=== PATIENT | female | born 1980 | race American Indian/Alaskan Native ===

== ENCOUNTER 2021-07-23 20:03 | Emergency (ER) | payer OTHER ==
--- NOTE | 2021-07-23 20:50 | XRay Report ---
CHEST 1 VIEW 07/23/2021 8:32 PM INDICATION / CLINICAL INFORMATION: Dyspnea. COMPARISON: 07/23/2021. FINDINGS: SUPPORT DEVICES: None. HEART / MEDIASTINUM: No significant abnormality. LUNGS / PLEURA: No significant pulmonary or pleural abnormality. No pneumothorax. ADDITIONAL FINDINGS: No significant additional findings. IMPRESSION: No acute abnormality. Signer Name: Antonio Hernandez MD Signed: 07/23/2021 8:46 PM Workstation Name: [id number]
[2021-07-23] MEDS ORDERED: IPRATROPIUM/ALBUTEROL SULFATE 3 ML AMPUL.NEB IH ONE (21:00)
--- NOTE | 2021-07-23 21:05 | Emergency Department Report ---
ED Asthma HPI - General Chief Complaint: Dyspnea/Respdistress Stated Complaint: SMILEY Time Seen by Provider: 07/23/21 20:16 Source: patient, EMS Mode of arrival: Stretcher Limitations: No Limitations - History of Present Illness Initial Comments: Patient is a 40-year-old female with history of asthma and sarcoidosis presenting with complaint of worsening shortness of breath. States her symptoms began on Friday. States he took her prednisone which did not help. Came here earlier today and received 1 nebulization which helped some. States her sympto ms returned/worsened later this evening. Given 125 mg IV Solu-Medrol by EMS in route along with 1 albuterol neb. - Related Data Allergies Allergy/AdvReac Type Severity Reaction Status Date / Time No Known Allergies Allergy Unverified 07/23/21 23:13 ED Review of Systems ROS: Stated complaint: SMILEY Other details as noted in HPI Constitutional: denies: chills, fever Respiratory: shortness of breath, wheezing Cardiovascular: denies: chest pain, palpitations Gastrointestinal: denies: abdominal pain, nausea, diarrhea Musculoskeletal: denies: back pain, joint swelling, arthralgia Skin: denies: rash, lesions Neurological: denies: headache, weakness, paresthesias Psychiatric: denies: anxiety, depression ED Physical Exam - General Limitations: No Limitations General appearance: alert, in no apparent distress - Head Head exam: Present: atraumatic, normocephalic - Neck Neck exam: Present: normal inspection - Respiratory Respiratory exam: Present: wheezes (Diffuse expiratory wheezing), accessory musc le use - Cardiovascular Cardiovascular Exam: Present: regular rate, normal rhythm, normal heart sounds - GI/Abdominal GI/Abdominal exam: Present: soft. Absent: distended, tenderness - Neurological Exam Neurological exam: Present: alert, oriented X3 - Psychiatric Psychiatric exam: Present: normal affect, normal mood - Skin Skin exam: Present: warm, dry, intact, normal color ED Course Vital Signs 07/23/21 21:12 Pulse Rate [ 86 Anterior Bilateral Throughout] Respiratory 18 Rate [Anterior Bilateral Throughout] ED Medical Decision Making - Lab Data Result diagrams: 07/23/21 21:16 07/23/21 21:16 - Medical Decision Making CBC, CMP, troponin and BNP unremarkable. Chest x-ray normal. Patient given DuoNeb x3 [id number] with improvement of symptoms. Likely combination of asthma and sarcoidosis. Patient currently satting 95% on room air. Wheezing is improved however not fully resolved. Patient states she has nebulizer treatments at home. Will discharge home with return precautions. Critical care attestation.: If time is entered above; I have spent that time in minutes in the direct care of this critically ill patient, excluding procedure time. ED Disposition Clinical Impression: Asthma exacerbation, Sarcoidosis Disposition: 01 HOME / SELF CARE / HOMELESS Is pt being admited?: No Condition: Stable Instructions: Sarcoidosis, Asthma, Adult, [id number] Time of Disposition: 23:43
[2021-07-23 21:40] LABS: Basophils % (Auto) 0.4 % (0.0-1.8); Eosinophils % (Auto) 0.1 % (0.0-4.3); Hematocrit 33.9 % (30.3-42.9); Hemoglobin 10.9 gm/dl (10.1-14.3); Lymphocytes # (Auto) 1.2 K/mm3 (1.2-5.4); Mean Corpuscular HGB Conc 32 % (30-34); Mean Corpuscular Volume 92 fl (79-97); Monocytes % (Auto) 8.4 % (0.0-7.3); Red Blood Count 3.68 M/mm3 (3.65-5.03); Red Cell Distribution Width 16.1 % (13.2-15.2)
[2021-07-23 21:46] LABS: Platelet Count 160 K/mm3 (140-440)
[2021-07-23 23:23] LABS: Alanine Aminotransferase 35 units/L (7-56); Albumin 4.1 g/dL (3.9-5); BUN/Creatinine Ratio 15; Blood Urea Nitrogen 17 mg/dL (7-17); Calcium 9.4 mg/dL (8.4-10.2); Hemolysis Index 16
[2021-07-23] MEDS ORDERED: MORPHINE 4 MG/1 ML INJ IV ONE (23:52)
[2021-07-24 00:24] VITALS: BP 134/98
== END 2021-07-24 00:23 | disposition home or self-care (01) ==
LOC: ED 20:03
DX: J45.901 Unspecified asthma with (acute) exacerbation (principal); D86.9 Sarcoidosis, unspecified
CPT/HCPCS: 36415; 71045; 80053; 83880; 84484; 85025; 94640; 94644; 96374; 99284